=== PATIENT | female | born 2000 | race Caucasian/White ===

== ENCOUNTER 2021-01-27 11:45 | Emergency (ER) | payer OTHER, SELFPAY ==
[2021-01-27 11:57] VITALS: BP 124/79; PULSE 78; RESP 18; TEMP 36.6; O2SAT 98; BMI 29.9
--- NOTE | 2021-01-27 12:13 | CT_ITS ---
WS: [id number] Exam: CT abdomen pelvis w con* [id number] Date/Time of Exam: 01/27/2021 12:18 PM Reason For Exam: RLQ pain DLP: 873.[address] scans at [facility] use at least one of these dose optimization techniques: automat ed exposure control; mA and/or kV adjustment per patient size (includes targeted exams where dose is matched to clinical indication); or iterative reconstruction. Lower lung zones are clear. 8 mm nonspecific nodule seen in the medial left breast. The liver, gallbl adder, spleen, and pancreas appear normal. The abdominal aorta is normal in caliber. Portal vein and IVC are patent. Normal adrenal glands and kidneys. The stomach is unremarkable. No free air. No lymph adenopathy. Small bowel loops are normal in caliber. Normal appendix is visualized. No significant la rge bowel abnormality is seen. Unremarkable urinary bladder. Normal-appearing uterus and ovaries. The re are several small subcentimeter lymph nodes in the right lower quadrant of the abdomen which are n onspecific. This might be seen with mild mesenteric adenitis. Bony structures are unremarkable. The a bdominal wall is intact. CT/CT abdomen pelvis w con* [id number] IMPRESSION: 1. No mass, lymphadenopathy or acute finding. 2. Normal appendix visualized. 3. Several small subcentimeter mesenteric lymph nodes are seen in the right low er quadrant. The appearance is nonspecific but this might be seen with mesenter ic adenitis.
--- NOTE | 2021-01-27 12:14 | W.ED.NAVMDI ---
HPI - Nausea/Vomiting/Diarrhea General: Chief complaint: Nausea/Vomiting/Diarrhea Stated complaint: ABD pain Time Seen by Provider: 01/27/21 11:55 Source: patient Mode of arrival: ambulatory Limitations: no limitations History of Present Illness: HPI Narrative: Patient is a 20-year-old female with no significant past medical history who presents to the emergency department with complaints of right lower quadrant pain that started yesterday. Symptoms seem to be worsening and she describes it as feeling like a knife is stabbing her in the right lower quadrant. She has associated nausea but no vomiting. No diarrhea. She has lost her appetite. She denies any fever. She has not had a period in over a year as she was on the Depo shot. She she does not think she is although she is not certain. MD elicited complaint: nausea and abdominal pain Onset (ago): day(s) (1) Associated nausea: Yes Associated abdominal pain: Yes Location of pain: RLQ Radiation: does not radiate Pain consistency: constant Severity: severe Quality: stabbing Exacerbating factors: movement Relieving factors: none Associated symtoms: Reports anorexia and nausea; Denies altered mental status, anxiety, bloating, change in vision, chest pain, cough, diaphoresis, decreased urine output, dizziness, dysuria, epistaxis, fatigue, fecal incontinence, fevers/chills, headache(s), malaise, myalgias, numbness, palpitations, rash, short of breath, syncope, tenesmus, tinnitus or weakness Review of Systems General: Reports: 10 or more systems reviewed and unremarkable except in HPI and below Const: Denies: fatigue, malaise or diaphoresis Eyes: Denies: change in vision ENMT: Denies: tinnitus or epistaxis Card: Denies: chest pain, palpitations or syncope Resp: Denies: dyspnea, productive cough or non-productive cough GI: Reports: nausea; Denies: bloating or fecal incontinence : Denies: dysuria Musc: Denies: neck pain, back pain or extremity swelling Skin/Breast: Denies: rash, pruritus or erythema Neuro: Denies: headache(s) or dizziness Psych: Denies: anxiety Endo: Denies: polyuria, polydipsia or tired all the time Physical Exam Const: COMMON NORMALS: no acute distress, average body habitus, patient oriented x3, no limitations, healthy appearing, alert and well nourished EXAM LIMITATIONS: no altered mental status HENMT: COMMON NORMALS: normocephalic, atraumatic and moist oral mucous membranes HEAD & SCALP: normocephalic and atraumatic Neck/C-Spine: COMMON NORMALS: no meningeal signs and no JVD Resp: COMMON NORMALS: normal respiratory effort, No retractions, No use of accessory muscles, clear to auscultation bilaterally and percussion normal AUSCULTATION: clear to auscultation bilaterally PERCUSSION: percussion normal Cardio: COMMON NORMALS: no JVD, regular rate, regular rhythm, S1 normal heart sound present, S2 normal heart sound present, No gallops present (Cardio), No clicks present (Cardio), No murmurs present (Cardio), No rub (Cardio) and Peripheral pulses 2+ throughout RATE: regular rate RHYTHM: regular rhythm HEART SOUNDS: S1 normal heart sound present and S2 normal heart sound present PERIPHERAL PULSES: Peripheral pulses 2+ throughout GI: COMMON NORMALS: Normal to inspection, nondistended, normoactive bowel sounds present, Soft to palpation, No hepatosplenomegaly present, no masses and no bruits PALPATION: Yes Soft to palpation, Yes Tenderness to palpation present (GI) (and periumbilical) Details: RLQ, Yes Guarding due to palpation present (GI) and Yes No hepatosplenomegaly present Extremity: COMMON NORMALS: normal to inspection, full ROM, capillary refill normal, no calf tenderness and no pedal edema Neuro: COMMON NORMALS: patient oriented x3 SENSORIUM/ORIENTATION: Yes alert MENINGEAL SIGNS: Yes no meningeal signs Skin: COMMON NORMALS: no rashes or lesions noted, no wounds, turgor normal, no jaundice, no petechiae and no mottling GENERAL SKIN EXAM: no rashes or lesions noted and turgor normal Course Reevaluation(s): Reevaluation #1: Discussed her labs and imaging findings with her - labs unremarkable and CT abd/pelvis consistent with mesenteric adenitis. She will be discharged home with no new orders. Explained that it is a self-limiting condition. She voiced understanding and all questions answered. Time: 14:03 Vital Signs: Vital signs: Vital Signs Temperature 97.8 F 01/27/21 11:57 Pulse Rate 82 01/27/21 13:01 Respiratory Rate 16 01/27/21 13:01 Blood Pressure 107/74 01/27/21 13:01 Pulse Oximetry 98 01/27/21 13:01 MDM - Nausea/Vomiting/Diarrhea MDM Narrative: Medical decision making narrative: This 20 year old female presents to the ED with RLQ pain. Examination in the ED was concerning for acute appendicitis, however labs did not support it. CT scan was consistent with mesenteric adenitis. She is discharged home on conservative measures. Medical Records: Attestation: I reviewed the patient's medical records. Lab Data: Attestation: I reviewed the patient's lab results. Labs: Lab Results 01/27/21 01/27/21 01/27/21 Range/Units 12:40 12:40 12:40 WBC 9.6 (4.0-10.0) 10^3/ uL RBC 4.81 (4.1-5.3) 10^6/u L Hgb 13.9 (11.5-15.3) g/dL Hct 42.5 (37.0-47.0) % MCV 88.4 (81-99) fL MCH 28.9 (28.0-34.0) pg MCHC 32.7 (30.0-36.0) g/dL RDW 12.3 (12.1-15.1) % Plt Count 285 (130-400) 10^3/c mm MPV 10.4 (7.4-10.4) fL Neut % (Auto) 60.6 % Lymph % (Auto) 30.8 % [place] % (Auto) 5.9 % Eos % (Auto) 1.9 % Baso % (Auto) 0.4 % Neut # (Auto) 5.81 (1.8-7.7) 10^3/u L Lymph # (Auto) 3.0 (0.8-4.8) 10^3/u L [place] # (Auto) 0.6 (0.2-0.9) 10^3/u L Eos # (Auto) 0.2 (0.0-0.8) 10^3/u L Baso # (Auto) 0.0 (0.0-0.1) 10^3/u L Nucleated RBC % (a uto) 0 % Nucleated RBCs # 0.0 /100WBC Sodium 139 (136-145) mmol/L Potassium 4.1 (3.5-5.1) mmol/L Chloride 103 (98-107) mmol/L Carbon Dioxide 27 (22-29) mmol/L Anion Gap 13.1 (5-19) BUN 6 (6-20) mg/dL Creatinine 0.7 (0.5-0.9) mg/dL GFR Calculation 104.6 (90-130) mL/min Glucose 76 (65-115) mg/dL Calculated Osmolal ity 284 L (285-295) mOsm/k g Lactate 0.9 (0.5-2.2) mmol/L Calcium 9.1 (8.5-10.5) mg/dL Total Bilirubin 0.5 (0.15-1.2) mg/dL AST 23 (0-32) U/L ALT 31 (0-33) U/L Alkaline Phosphata se 86 (35-105) IU/L C-Reactive Protein 1.8 (0.0-4.9) mg/L Total Protein 7.5 (6.6-8.7) g/dL Albumin 4.3 (3.5-5.2) g/dL Globulin 3.2 (1.3-4.6) g/dL Lipase 31 (13-60) U/L HCG, Qual (Negative) Urine Color (Yellow) Urine Appearance (CLEAR) Urine pH (5-7) Ur Specific Gravit y (1.005-1.030) Urine Protein (Negative) Urine Glucose (UA) (Normal) Urine Ketones (Negative) Urine Blood (Negative) Urine Nitrate (Negative) Urine Bilirubin (Negative) Urine Urobilinogen (Negative) mg/dL Ur Leukocyte Juliana ase (Negative) 01/27/21 01/27/21 Range/Units 12:45 12:45 WBC (4.0-10.0) 10^3/ uL RBC (4.1-5.3) 10^6/u L Hgb (11.5-15.3) g/dL Hct (37.0-47.0) % MCV (81-99) fL MCH (28.0-34.0) pg MCHC (30.0-36.0) g/dL RDW (12.1-15.1) % Plt Count (130-400) 10^3/c mm MPV (7.4-10.4) fL Neut % (Auto) % Lymph % (Auto) % [place] % (Auto) % Eos % (Auto) % Baso % (Auto) % Neut # (Auto) (1.8-7.7) 10^3/u L Lymph # (Auto) (0.8-4.8) 10^3/u L [place] # (Auto) (0.2-0.9) 10^3/u L Eos # (Auto) (0.0-0.8) 10^3/u L Baso # (Auto) (0.0-0.1) 10^3/u L Nucleated RBC % (a uto) % Nucleated RBCs # /100WBC Sodium (136-145) mmol/L Potassium (3.5-5.1) mmol/L Chloride (98-107) mmol/L Carbon Dioxide (22-29) mmol/L Anion Gap (5-19) BUN (6-20) mg/dL Creatinine (0.5-0.9) mg/dL GFR Calculation (90-130) mL/min Glucose (65-115) mg/dL Calculated Osmolal ity (285-295) mOsm/k g Lactate (0.5-2.2) mmol/L Calcium (8.5-10.5) mg/dL Total Bilirubin (0.15-1.2) mg/dL AST (0-32) U/L ALT (0-33) U/L Alkaline Phosphata se (35-105) IU/L C-Reactive Protein (0.0-4.9) mg/L Total Protein (6.6-8.7) g/dL Albumin (3.5-5.2) g/dL Globulin (1.3-4.6) g/dL Lipase (13-60) U/L HCG, Qual Negative (Negative) Urine Color Yellow (Yellow) Urine Appearance Clear (CLEAR) Urine pH 7 (5-7) Ur Specific Gravit y 1.010 (1.005-1.030) Urine Protein Neg (Negative) Urine Glucose (UA) Norm (Normal) Urine Ketones Negative (Negative) Urine Blood Neg (Negative) Urine Nitrate Negative (Negative) Urine Bilirubin Neg (Negative) Urine Urobilinogen Norm (Negative) mg/dL Ur Leukocyte Juliana ase Negative (Negative) Imaging Data^: CT Abd/Pel: Attestation: I personally reviewed and interpreted this imaging study as follows: Radiologist's impression: [address] [address] [address] Scan Report Signed Patient: Jen Odell #: [id number] : 2000Acct#:[id number] Age/Sex: 20 / FADM Date: 01/27/21 Loc: ERRoom/Bed: Attending Dr: Ordering Provider/Ordering MD: Henrique Tyler MD, [facility] [place] Date of Service: 01/27/21 Procedure(s): CT abdomen pelvis w con* [id number] Accession Number(s): [id number] Report Number: [id number] WS: [id number] Exam: CT abdomen pelvis w con* [id number] Date/Time of Exam: 01/27/2021 12:18 PM Reason For Exam: RLQ pain DLP: 873.[address] scans at [facility] use at least one of these dose optimization techniques: automated exposure control; mA and/or kV adjustment per patient size (includes targeted exams where dose is matched to clinical indication); or iterative reconstruction. Lower lung zones are clear. 8 mm nonspecific nodule seen in the medial left breast. The liver, gallbladder, spleen, and pancreas appear normal. The abdominal aorta is normal in caliber. Portal vein and IVC are patent. Normal adrenal glands and kidneys. The stomach is unremarkable. No free air. No lymphadenopathy. Small bowel loops are normal in caliber. Normal appendix is visualized. No significant large bowel abnormality is seen. Unremarkable urinary bladder. Normal-appearing uterus and ovaries. There are several small subcentimeter lymph nodes in the right lower quadrant of the abdomen which are nonspecific. This might be seen with mild mesenteric adenitis. Bony structures are unremarkable. The abdominal wall is intact. CT/CT abdomen pelvis w con* [id number] IMPRESSION: 1. No mass, lymphadenopathy or acute finding. 2. Normal appendix visualized. 3. Several small subcentimeter mesenteric lymph nodes are seen in the right lower quadrant. The appearance is nonspecific but this might be seen with mesenteric adenitis. Dictated By:García Saleh DO Signed By:Yessica Ag Date/Time:01/27/21 1336 DD/ 1326 Discharge Plan Discharge Patient Disposition: Home Clinical Impression: Acute mesenteric adenitis Condition: Stable Prescriptions: Continued cefuroxime axetil 250 mg Tablet 250 mg PO BID RF: 0 Discharge Orders: Discharge ED (Routine); Ordered 01/27/21 Ordered By: Henrique Tyler Referrals: Carmella Santizo APN [Primary Care Provider] - 1-3 days Discharge Diet: Usual diet Discharge Activity: Resume usual activity Patient Instructions: Mesenteric Adenitis (ED) Activity Restrictions/Additional Instructions: Return for any new or worsening symptoms. Follow-up with your primary care provider within 3 days. Your symptoms are due to a condition called mesenteric adenitis which usually resolves on its own. Take Tylenol or ibuprofen as needed for pain. Drink plenty of fluids to keep well-hydrated. Coding Level of Care Code ED Induction Coordination Engineer for Lucien Fwd Exam Comprehensive
[2021-01-27 12:44] VITALS: BP 115/72; PULSE 76; RESP 14; O2SAT 100
[2021-01-27 12:57] LABS: Basophils % 0.4 %; Eosinophils # 0.2 10^3/uL (0.0-0.8); Eosinophils % 1.9 %; Hematocrit 42.5 % (37.0-47.0); Hemoglobin 13.9 g/dL (11.5-15.3); Lymphocytes % 30.8 %; Mean Corpuscular HGB Conc 32.7 g/dL (30.0-36.0); Mean Corpuscular Hemoglobin 28.9 pg (28.0-34.0); Mean Corpuscular Volume 88.4 fL (81-99); Mean Platelet Volume 10.4 fL (7.4-10.4); Monocytes # 0.6 10^3/uL (0.2-0.9); Monocytes % 5.9 %; Neutrophils # 5.81 10^3/uL (1.8-7.7); Neutrophils % 60.6 %; Nucleated Red Blood Cells % 0 %; Platelet Count 285 10^3/cmm (130-400); Red Blood Count 4.81 10^6/uL (4.1-5.3); Red Cell Distribution Width 12.3 % (12.1-15.1); White Blood Count 9.6 10^3/uL (4.0-10.0)
[2021-01-27 13:01] VITALS: BP 107/74; PULSE 82; RESP 16; O2SAT 98
[2021-01-27 13:01] LABS: Add Urine Microscopic? NO
[2021-01-27 13:10] LABS: Alanine Aminotransferase 31 U/L (0-33); Albumin Level 4.3 g/dL (3.5-5.2); Alkaline Phosphatase 86 IU/L (35-105); Anion Gap 13.1 (5-19); Aspartate Amino Transferase 23 U/L (0-32); Blood Urea Nitrogen 6 mg/dL (6-20); C Reactive Protein 1.8 mg/L (0.0-4.9); Calcium 9.1 mg/dL (8.5-10.5); Carbon Dioxide 27 mmol/L (22-29); Chloride 103 mmol/L (98-107); Globulin 3.2 g/dL (1.3-4.6); Glomerular Filtration Rate 104.6 mL/min (90-130); Glucose 76 mg/dL (65-115); Lipase 31 U/L (13-60); Osmolality Calculated 284 mOsm/kg (285-295); Potassium 4.1 mmol/L (3.5-5.1); Sodium 139 mmol/L (136-145); Total Bilirubin 0.5 mg/dL (0.15-1.2); Total Protein 7.5 g/dL (6.6-8.7)
[2021-01-27 13:10] LABS: HCG Qualitative Urine. Negative (Negative)
[2021-01-27 13:11] LABS: Lactate (Lactic Acid level) 0.9 mmol/L (0.5-2.2)
[2021-01-27] MEDS: iohexol 300 mg/mL 100 mL Btl IV (13:18)
[2021-01-27 13:19] LABS: Bilirubin Urine Neg (Negative); Blood Urine Neg (Negative); Glucose Urine UA Norm (Normal); Ketones Urine Negative (Negative); Leukocyte Esterase Urine Negative (Negative); Nitrate Urine Negative (Negative); Protein Urine Neg (Negative); Urine Appearance Clear (CLEAR); Urine Color Yellow (Yellow); Urobilinogen Urine Norm (Negative); pH Urine 7 (5-7)
== END 2021-01-27 18:00 | disposition home or self-care (01) ==
PROVIDERS: Emergency Provider Family Medicine; PCP Nurse Practitioner Family
DX: I88.0 Nonspecific mesenteric lymphadenitis (principal)
CPT/HCPCS: 74177; 80053; 81003; 81025; 83605; 83690; 85025; 86140; 99282; Q9967

== ENCOUNTER → 2021-11-21 13:55 | Outpatient (BNVA) | payer BC, SELFPAY | PROVIDERS: PCP Nurse Practitioner Family; Visit Provider Nurse Practitioner Women's Health | DX: N92.6 Irregular menstruation, unspecified (principal) | CPT/HCPCS: 81025; 84702 ==

== ENCOUNTER → 2021-11-29 09:51 | Outpatient (BNVA) | payer BC, SELFPAY | PROVIDERS: PCP Nurse Practitioner Family; Visit Provider Nurse Practitioner Family | DX: R07.0 Pain in throat (principal); Z87.09 Personal history of other diseases of the respiratory system; R05.9 Cough, unspecified | CPT/HCPCS: 87071; 87635; 87880 ==

== ENCOUNTER → 2022-01-08 14:55 | Outpatient (BNVA) | payer BC, MEDICAID, SELFPAY | PROVIDERS: PCP Nurse Practitioner Family; Visit Provider Obstetrics & Gynecology | DX: Z34.80 Encounter for supervision of other normal pregnancy, unspecified trimester (principal) | CPT/HCPCS: 80307; 84315; 84443; 85025; 86592; 86762; 86803; 86850; 86900; 87086; 87340; 87491; 87591; 87661; 88175 ==

== ENCOUNTER → 2022-01-11 13:50 | Outpatient (BNVA) | payer BC, MEDICAID, SELFPAY | PROVIDERS: PCP Nurse Practitioner Family; Visit Provider Obstetrics & Gynecology | DX: R39.9 Unspecified symptoms and signs involving the genitourinary system (principal) | CPT/HCPCS: 81000; 87086 ==

== ENCOUNTER → 2022-03-12 11:27 | Outpatient (BNVA) | payer BC, MEDICAID, SELFPAY | PROVIDERS: PCP Nurse Practitioner Family; Visit Provider Obstetrics & Gynecology | DX: O98.819 Other maternal infectious and parasitic diseases complicating pregnancy, unspecified trimester (principal); A74.9 Chlamydial infection, unspecified; Z3A.00 Weeks of gestation of pregnancy not specified | CPT/HCPCS: 84315; 87086 ==

== ENCOUNTER → 2022-04-02 13:17 | Outpatient (BNVA) | payer BC, MEDICAID, SELFPAY | PROVIDERS: PCP Nurse Practitioner Family; Visit Provider Obstetrics & Gynecology | DX: Z34.90 Encounter for supervision of normal pregnancy, unspecified, unspecified trimester (principal); Z11.3 Encounter for screening for infections with a predominantly sexual mode of transmission | CPT/HCPCS: 84315; 87491; 87591; 87661 ==

== ENCOUNTER → 2022-05-03 08:24 | Outpatient (BNVA) | payer BC, MEDICAID, SELFPAY | PROVIDERS: PCP Nurse Practitioner Family; Visit Provider Obstetrics & Gynecology | DX: Z34.90 Encounter for supervision of normal pregnancy, unspecified, unspecified trimester (principal) | CPT/HCPCS: 82950; 84315; 85025 ==

== ENCOUNTER → 2022-06-25 11:37 | Outpatient (BNVA) | payer BC, MEDICAID, SELFPAY | PROVIDERS: PCP Nurse Practitioner Family; Visit Provider Obstetrics & Gynecology | DX: O98.819 Other maternal infectious and parasitic diseases complicating pregnancy, unspecified trimester (principal); A74.9 Chlamydial infection, unspecified; Z3A.00 Weeks of gestation of pregnancy not specified | CPT/HCPCS: 84315; 87081; 87086 ==

== ENCOUNTER 2022-07-10 11:45 | Outpatient (CLI) | payer BC, MEDICAID, SELFPAY ==
[2022-07-10 12:01] VITALS: BP 105/70; PULSE 90; TEMP 36.1
[2022-07-10 12:19] VITALS: RESP 18
[2022-07-10 12:25] LABS: Nitrazine Paper, PH Negative
[2022-07-10 12:26] VITALS: BP 112/61; PULSE 97; BMI 32.9
[2022-07-10 12:40] VITALS: BP 110/63; PULSE 84
[2022-07-10 12:41] LABS: Actim Prom Negative
[2022-07-10 12:55] VITALS: BP 102/55; PULSE 90
--- NOTE | 2022-07-10 12:59 | PC.NURSE ---
[facility] was [facility] at this time. Phergan 25mg 1 tablet nightly for 5 days #5 no refill was called at this time.
== END 2022-07-10 13:15 | disposition home or self-care (01) ==
LOC: OPOB 11:50 → OBGYN 11:56
PROVIDERS: PCP Nurse Practitioner Family; Visit Provider Obstetrics & Gynecology
DX: O26.899 Other specified pregnancy related conditions, unspecified trimester (principal); Z3A.00 Weeks of gestation of pregnancy not specified; N89.8 Other specified noninflammatory disorders of vagina
CPT/HCPCS: 59025; 83986; 84112; 99211

== ENCOUNTER 2022-07-15 21:24 | Outpatient (CLI) | payer BC, MEDICAID, SELFPAY ==
[2022-07-15 21:27] VITALS: BMI 33.3
[2022-07-15 21:39] VITALS: BP 107/72; PULSE 83
[2022-07-15] MEDS: acetaminophen 325 mg Tablet 650 MG PO (22:13)
[2022-07-15 23:53] VITALS: BP 117/63; PULSE 65; RESP 16
== END 2022-07-15 23:59 | disposition home or self-care (01) ==
LOC: OPOB 21:25 → OBGYN 21:26
PROVIDERS: PCP Nurse Practitioner Family; Visit Provider Obstetrics & Gynecology
DX: O26.899 Other specified pregnancy related conditions, unspecified trimester (principal); Z3A.00 Weeks of gestation of pregnancy not specified; R10.9 Unspecified abdominal pain
CPT/HCPCS: 59025; 99211

== ENCOUNTER 2022-07-21 14:38 | Inpatient (IN) | payer BC, MEDICAID, SELFPAY ==
[2022-07-21] VITALS (32 sets, daily range): BP systolic 90–117; BP diastolic 52–80; PULSE 64–94; RESP 16–18; O2SAT 92–100; BMI 32.5
--- NOTE | 2022-07-21 14:40 | PM.OPHPUD ---
Labor & Delivery H&P Update Date of Procedure: July 21, 2022 Date H&P Performed: 07/16/22 H&P update information: I have reviewed H&P completed within last 30 days, I have examined patient prior to procedure and No changes to prior documentation Admission Diagnosis: Related Problem List Diagnoses (1) Chlamydia infection affecting : (2) Supervision of normal :
[2022-07-21] MEDS: miSOPROStol 100 mcg tablet 25 MCG VAGINAL ×2 (15:27→19:55)
[2022-07-21 15:34] LABS: Basophils % 0.1 %; Eosinophils % 0.5 %; Hematocrit 35.4 % (37.0-47.0); Hemoglobin 11.5 g/dL (11.5-15.3); Lymphocytes # 1.7 10^3/uL (0.8-4.8); Lymphocytes % 19.6 %; Mean Corpuscular HGB Conc 32.5 g/dL (30.0-36.0); Mean Corpuscular Hemoglobin 27.8 pg (28.0-34.0); Mean Corpuscular Volume 85.5 fl (81-99); Mean Platelet Volume 11.8 fL (7.4-10.4); Monocytes # 0.6 10^3/uL (0.2-0.9); Monocytes % 7.2 %; Neutrophils # 6.24 10^3/uL (1.8-7.7); Neutrophils % 72.3 %; Nucleated Red Blood Cells % 0 %; Platelet Count 131 10^3/cmm (130-400); Red Blood Count 4.14 10^6/uL (4.1-5.3); Red Cell Distribution Width 13.4 % (12.1-15.1); White Blood Count 8.6 10^3/uL (4.0-10.0)
[2022-07-21] MEDS: acetaminophen 325 mg Tablet 650 MG PO (20:37)
[2022-07-21] MEDS: fentaNYL 50 mcg/mL INJ 2mL IVP ×2 (21:47→23:12)
[2022-07-21] MEDS: ondansetron 2 mg/ML SDV 2 mL 4 MG IVP (23:12)
[2022-07-21] MEDS: lactated ringers 1,000 ML 999 ML IV (23:38)
[2022-07-22] VITALS (38 sets, daily range): BP systolic 102–154; BP diastolic 53–122; PULSE 56–176; RESP 16–17; TEMP 36.6–36.8; O2SAT 89–100
[2022-07-22] MEDS: oxytocin 30 UNIT/500 ML BAG 600 UNIT IV (01:17)
[2022-07-22] MEDS: lidocaine 2% INJ 20 mL INJECTION (01:20)
--- NOTE | 2022-07-22 01:43 | PM.DELIVERY ---
Delivery Note: Date of delivery: July 22, 2022 Pre-delivery diagnoses: [id number] Post-delivery diagnoses: same-delivered Procedure: Delivering Physician: Darnell Findings: Term male in the JONN presentation Pre-Delivery Course: The patient was admitted for scheduled induction. She received 2 doses of cytotec and began laboring off of the second dose. She desired a natural labor. She had complete cervical dilation and AROM was performed with clear fluid. She began pushing. Delivery: The patient had complete cervical dilation and began to push. The head delivered in the JONN position over an intact perineum under no anesthesia. There was a mild shoulder dystocia relieved with Neal maneuver. The shoulders and body delivered atraumatically. The baby was placed onto the mother's abdomen. The nose and mouth were bulb suctioned. The cord was clamped and cut. The placenta delivered spontaneously. It was inspected and found to be intact. Inspection of the perineum revealed a small second-degree laceration which was repaired in the usual fashion.. Estimated blood loss 25 mL. Apgars on baby were 9 at 1 minute and 9 at 5 minutes. Weight of baby is 8 pounds 4 ounces. Mother and baby were stable post delivery. History History History 1 Term Miscarriages/Ectopic Living Children Coding Level of Care Code Acute Architectural Project Manager for Chg Magdy
[2022-07-22] MEDS: benzocaine-menthol 78 gm Canister 1 SPRAY TOPICAL (03:34)
[2022-07-22] MEDS: lanolin oint 7 gm 1 APPLIC TOPICAL (03:34)
[2022-07-22] MEDS: ibuprofen 800 mg tablet PO ×3 (08:16→21:13)
[2022-07-22] MEDS: prenatal vitamin Capsule 1 CAP PO (08:16)
[2022-07-22] MEDS: docusate sodium 100 mg Capsule PO ×2 (08:16→21:13)
--- NOTE | 2022-07-22 10:00 | PC.NURSE ---
ambulated to OB 8. oriented to room/call light
[2022-07-22 14:27] LABS: Hematocrit 34.2 % (37.0-47.0); Hemoglobin 11.3 g/dL (11.5-15.3); Mean Corpuscular Volume 84.9 fl (81-99); Mean Platelet Volume 11.9 fL (7.4-10.4); Platelet Count 154 10^3/cmm (130-400); Red Blood Count 4.03 10^6/uL (4.1-5.3); Red Cell Distribution Width 13.3 % (12.1-15.1); White Blood Count 13.1 10^3/uL (4.0-10.0)
--- NOTE | 2022-07-23 00:17 | PC.NURSE ---
Mom pushed her call light and said that she would like to try to feed baby a bottle as he is not latching to her breast and she has tried multiple times. I offered to assist her with latch if she wanted and she said she would prefer bottle to see if he will rest better afterward.
[2022-07-23 04:15] VITALS: BP 93/58; PULSE 67; RESP 17; TEMP 36.4; O2SAT 97
--- NOTE | 2022-07-23 08:07 | P.DS_ITS ---
Discharge Providers Date of Admission: 07/21/22 14:38 Date of Discharge: July 23, 2022 Attending Provider at Admission: Fabiola Patrick MD Attending Provider at Discharge: Fabiola Patrick MD Primary Care Provider: Carmella Santizo APN Diagnoses at Discharge Discharge Diagnosis (1) Chlamydia infection affecting : Status: Resolved (2) Supervision of normal : Status: Resolved Reason for Visit Reason for Visit: Induction Hospital Course Hospital Course The patient was admitted for induction at term. She received two doses of cytotec and spontaneously labored. She had a natural labor. She delivered a term . she did well and was ready for discharge on day #1 Physical Exam Narrative: The patient is doing well today. No concerns. She is breast feeding. she has normal lochia. Pain is controlled. Const: COMMON NORMALS: no acute distress, patient oriented x3, no limitations, healthy appearing, alert and well nourished GENERAL APPEARANCE: cooperative, comfortable, well kempt and well developed ORIENTATION/CONSCIOUSNESS: Yes awake, Yes oriented to person, Yes oriented to place and Yes oriented to time Resp: COMMON NORMALS: normal respiratory effort EFFORT & INSPECTION: Yes able to speak in complete sentences GI: COMMON NORMALS: Soft to palpation and non-tender PALPATION: Yes Soft to palpation Extremity: COMMON NORMALS: no calf tenderness Neuro: COMMON NORMALS: patient oriented x3 SENSORIUM/ORIENTATION: Yes alert, Yes oriented to person, Yes oriented to place and Yes oriented to time Psych: APPEARANCE: Yes well kempt Discharge Data Studies Completed and Pending Laboratory Results WBC 13.1 10^3/uL (4.0-10.0) H 07/22/22 14:15 RBC 4.03 10^6/uL (4.1-5.3) L 07/22/22 14:15 Hgb 11.3 g/dL (11.5-15.3) L 07/22/22 14:15 Hct 34.2 % (37.0-47.0) L 07/22/22 14:15 MCV 84.9 fl (81-99) 07/22/22 14:15 MCH 28.0 pg (28.0-34.0) 07/22/22 14:15 MCHC 33.0 g/dL (30.0-36.0) 07/22/22 14:15 RDW 13.3 % (12.1-15.1) 07/22/22 14:15 Plt Count 154 10^3/cmm (130-400) 07/22/22 14:15 MPV 11.9 fL (7.4-10.4) H 07/22/22 14:15 Neut % (Auto) 72.3 % 07/21/22 15:09 Lymph % (Auto) 19.6 % 07/21/22 15:09 [place] % (Auto) 7.2 % 07/21/22 15:09 Eos % (Auto) 0.5 % 07/21/22 15:09 Baso % (Auto) 0.1 % 07/21/22 15:09 Neut # (Auto) 6.24 10^3/uL (1.8-7.7) 07/21/22 15:09 Lymph # (Auto) 1.7 10^3/uL (0.8-4.8) 07/21/22 15:09 [place] # (Auto) 0.6 10^3/uL (0.2-0.9) 07/21/22 15:09 Eos # (Auto) 0.0 10^3/uL (0.0-0.8) 07/21/22 15:09 Baso # (Auto) 0.0 10^3/uL (0.0-0.1) 07/21/22 15:09 Nucleated RBC % (auto) 0 % 07/21/22 15:09 Nucleated RBCs # 0.0 /100WBC 07/21/22 15:09 Vitals Last Vital Signs Temp 97.6 F 07/23/22 04:15 Pulse 67 07/23/22 04:15 Resp 17 07/23/22 04:15 BP 93/58 07/23/22 04:15 Pulse Ox 97 07/23/22 04:15 O2 Del Method 07/23/22 04:15 Discharge Plan Discharge Patient Disposition: Home Condition: Stable Prescriptions: Continued prenat.vits,ksenia,[id number]-[id number] Tablet 1 tab PO DAILY ferrous sulfate [Feosol] 325 mg (65 mg iron) tablet 325 mg PO DAILY Discharge Orders: Discharge Order (Routine); Ordered 07/23/22 Ordered By: Fabiola Patrick Referrals: Fabiola Patrick MD [Physician] - 08/08/22 1:45 pm (Your [address] Patrick is 09/03/22 8:00 am.) Patient Instructions: Depression (DC), Perineal Care (DC), and the Working Mom (DC), Expression, Collection and Storage of Breast Milk (DC), and Nipple Soreness (DC), and Breast Engorgement (DC), and Plugged Ducts (DC), How to Increase Your Milk Supply (DC), Pelvic Rest (ED), Breast Care for the Mother (DC), OB Discharge Report, Opioid Safety, OB Home Care, Abnormal Bleeding Activity Restrictions/Additional Instructions: Pelvic rest for 6 weeks Discharge Attestations Time Spent in Discharge Care*: less than 30 min Quality Metrics Clinical Quality Measures [ No reported AMI, CVA or VTE this stay] Coding Level of Care Code Acute Chg FW DC note Diagnoses Chlamydia infection affecting O98.819; A74.9 Supervision of normal Z34.90
[2022-07-23] MEDS: prenatal vitamin Capsule 1 CAP PO (09:12)
[2022-07-23] MEDS: ibuprofen 800 mg tablet PO (09:12)
[2022-07-23] MEDS: docusate sodium 100 mg Capsule PO (09:12)
[2022-07-23 09:16] VITALS: BP 105/69; PULSE 78; RESP 16; TEMP 36.4; O2SAT 97
[2022-07-23 11:30] VITALS: BP 105/69; PULSE 78; RESP 16; TEMP 36.4; O2SAT 97
== END 2022-07-23 11:30 | disposition home or self-care (01) | DRG 807 ==
LOC: OPOB 14:38 → OBGYN 14:38
PROVIDERS: Admitting Provider Obstetrics & Gynecology; PCP Nurse Practitioner Family; Visit Provider Obstetrics & Gynecology
DX: O98.82 Other maternal infectious and parasitic diseases complicating childbirth (principal); Z37.0 Single live birth; Z3A.39 39 weeks gestation of pregnancy; O70.1 Second degree perineal laceration during delivery; O66.0 Obstructed labor due to shoulder dystocia
CPT/HCPCS: 36415; 59025; 59409; 85025; 85027; 99211; J2405; J3010

== ENCOUNTER 2023-05-05 13:23 | Emergency (ER) | payer MEDICAID, SELFPAY ==
[2023-05-05 13:26] VITALS: BP 111/74; PULSE 67; RESP 12; TEMP 36.6; O2SAT 100; BMI 26.6
--- NOTE | 2023-05-05 14:06 | ED_ITS ---
HPI - Back Pain/Injury General: Chief Complaint: Back Pain/Injury Stated Complaint: pain in lower back Time Seen by Provider: 05/05/23 13:58 Source: patient Mode of arrival: ambulatory Limitations: no limitations History of Present Illness: This 23-year-old female presents to the ER for evaluation of low back pain that started earlier today. She bent over to filler picker laundry when she heard a pop in her back. At a time, she felt shooting pain down her right leg. Pain has since resolved. Now, she primarily has pain in her lower back. There is no urinary or bowel symptoms. She drove herself to the ER for evaluation. Associated symptoms: Deny chills or dysuria Review of Systems Const: Denies: chills, body aches or change in appetite Eyes: Denies: change in vision or eye discharge ENMT: Denies: throat pain, dental pain or nasal discharge Card: Denies: chest pain or lightheadedness : Denies: dysuria Musc: Reports: back pain Neuro: Denies: headache(s) or weakness in extremities Psych: Denies: depression Viraj/Lymph: Denies: easy bruising All/Imm: Denies: urticaria, tongue swelling or facial swelling PFSH ED PFSH: Medical History No pertinent past medical history neghx: htn,dm,thyroid,dvt/pe PCP: Yeimy Santizo Surgical History No pertinent past surgical history Family History Grandfather Diabetes Maternal Hypertension Maternal Family/Other Diabetes Maternal Aunt Hypertension Maternal Aunt Mother Thyroid disease Denies family history of Colon cancer Ovarian cancer Heart disease Hypercholesteremia Breast cancer Uterine cancer Stroke Physical Exam Const: COMMON NORMALS: no acute distress, patient oriented x3, no limitations and alert HENMT: COMMON NORMALS: normocephalic HEAD & SCALP: normocephalic Eye: COMMON NORMALS: EOMs intact bilaterally Neck/C-Spine: COMMON NORMALS: full ROM and supple Chest: COMMONS NORMALS: normal inspection of the chest Resp: COMMON NORMALS: normal respiratory effort, No retractions, No use of accessory muscles and clear to auscultation bilaterally AUSCULTATION: clear to auscultation bilaterally Cardio: COMMON NORMALS: regular rate, regular rhythm and No murmurs present (Cardio) RATE: regular rate RHYTHM: regular rhythm GI: COMMON NORMALS: Normal to inspection, nondistended, normoactive bowel sounds present and non-tender Back/Pelvis: OTHER: Tenderness in the lower lumbar spine. No redness, swelling or deformity. No sign of acute trauma. No distal neurovascular deficit. Extremity: GENERAL: Yes normal exam except as noted Neuro: COMMON NORMALS: patient oriented x3 and no focal motor deficits SEN SORIUM/ORIENTATION: Yes alert Psych: COMMON NORMALS: mental status grossly normal and cooperative Course Vital Signs: Vital signs: Vital Signs Temperature 97.9 F 05/05/23 13:26 Pulse Rate 98 05/05/23 14:24 Respiratory Rate 16 05/05/23 14:24 Blood Pressure 130/73 05/05/23 14:24 Pulse Oximetry 94 05/05/23 14:24 Oxygen Delivery Me thod Room Air 05/05/23 14:24 MDM - Back Pain/Injury Medical Decision Making Medical decision making: Patient presents with low back pain. On exam, besides mild tenderness on palpation of the lumbar spine, there is no saddle anesthesia and patient reports no urinary or bowel problems. At this time, there is no concern for cauda eq uina syndrome. There is no indication for x-ray of her back. It will be of little benefit. She will be treated symptomatically. However she was advised that if pain persists beyond 4 weeks, she should follow-up with her primary care physician for an MRI of her lumbar spine. Patient verbalized understanding and agrees with the plan. Discharge Plan Discharge Patient Disposition: Home Clinical Impression: Acute back pain Condition: Stable Prescriptions: New ketorolac 10 mg tablet 10 mg PO Q6H PRN (Reason: pain) 1 Days Qty: 20 0RF cyclobenzaprine 10 mg tablet 10 mg PO Q8H PRN (Reason: muscle spasm/back pain) Qty: 20 0RF No Action prenat.vits,ksenia,tus-swto-xuouc Tablet 1 tab PO DAILY Discharge Orders: Discharge ED (Routine); Ordered 05/05/23 Ordered By: Erica Lemon Referrals: Santizo,EDELMIRA Weir [Primary Care Provider] - Discharge Diet: Usual diet Discharge Activity: Resume usual activity Patient Instructions: Opioid Safety, Pain Management Activity Restrictions/Additional Instructions: Take ketorolac and cyclobenzaprine as prescribed. You may add Tylenol to it. Follow-up with your primary care physician in a week for reevaluation. If your pain persists beyond 4 weeks, consider getting an MRI of your back. Return if you develop any new or worsening symptoms. Coding Level of Care Code ED Media Monitor for Lucien Curran
[2023-05-05 14:24] VITALS: BP 130/73; PULSE 98; RESP 16; O2SAT 94
[2023-05-05] MEDS: ketorolac 60 mg/2 mL INJ IM (14:27)
== END 2023-05-05 14:32 | disposition home or self-care (01) ==
PROVIDERS: Emergency Provider Family Medicine; PCP Nurse Practitioner Family
DX: M54.50 Low back pain, unspecified (principal)
CPT/HCPCS: 96372; 99284; J1885

== ENCOUNTER 2023-05-31 12:15 | Outpatient (CLI) | payer MEDICAID, SELFPAY ==
--- NOTE | 2023-05-31 12:25 | XR_ITS ---
WS: [id number] LUMBAR SPINE: 5 VIEWS TECHNIQUE: AP and lateral films. Lateral in neutral, flexion and extension. HISTORY: LOW BACK PAIN WITH RADICULOPATHY COMPARISON: None available. Mild S-shaped curvature lumbar spine. Pedicles are intact. No lumbar spine instability. No loss of disc space or vertebral body height. SI joints are symmetric bilaterally. No soft tissue abnormalities. XR/XR lumbar spine min 4V [id number] IMPRESSION: 1. No fracture. 2. Mild curvature and scoliosis. Less than 10%. 3. No instability.
== END 2023-05-31 12:16 | disposition home or self-care (01) ==
LOC: RAD 12:18
PROVIDERS: PCP Nurse Practitioner Family; Visit Provider Nurse Practitioner Family
DX: M51.16 Intervertebral disc disorders with radiculopathy, lumbar region (principal)
CPT/HCPCS: 72110

== ENCOUNTER → 2023-09-22 12:36 | Outpatient (BNVA) | payer MEDICAID, SELFPAY | PROVIDERS: PCP Nurse Practitioner Family; Visit Provider Nurse Practitioner | DX: R30.0 Dysuria (principal); R39.9 Unspecified symptoms and signs involving the genitourinary system; N30.00 Acute cystitis without hematuria | CPT/HCPCS: 81000; 87086 ==